=== PATIENT | female | born 1940 | race Caucasian/White ===

== ENCOUNTER 2019-08-24 14:02 | Emergency (ER) | payer OTHER ==
[~2019-08-24] VITALS: Ht 167.6 cm; Wt 66.3 kg
[2019-08-24 14:11] VITALS: BP 104/63
[2019-08-24 15:35] VITALS: BP 104/63
== END 2019-08-24 15:35 | disposition home or self-care (01) ==
LOC: MED 14:02
DX: M54.32 Sciatica, left side (principal)
CPT/HCPCS: 99283